=== PATIENT | female | born 1990 | race Asian ===

== ENCOUNTER 2022-03-14 08:30 | Inpatient (IN) | payer BC, SELFPAY ==
--- NOTE | 2022-03-07 09:59 | HP.PCM.OB_ITS ---
HPI - General HPI Narrative HPI: The patient is a 32 year old female presenting for pre-operative visit. She is scheduled for , for prevoius c/s, previous IUFD on 12/15/21. Procedure discussed along with risks, benefits and complications. Other alternatives discussed for management. Consent form signed? Yes. ? ? PAST MEDICAL HISTORY PAST MEDICAL HISTORY Diagnosis Date ? Disorder of thyroid ? ? Gestational hypertension ? ? History of pre-eclampsia in prior , currently ? ? IUFD at 20 weeks or more of gestation ? ? kidney stone 2020 ? Nabothian cyst ? ? depression ? ? ? PAST SURGICAL HISTORY PAST SURGICAL HISTORY Procedure Laterality Date ? SECTION MULTI>2 ? ? ? L'SCOPE DX W/WO BRUSHINGS/WASHINGS ? CURRENT MEDICATIONS Current Outpatient Medications Medication Sig Dispense Refill ? ECOTRIN LOW STRENGTH 81 mg EC tablet TAKE 2 TABLETS ONCE DAILY 360 tablet 3 ? levothyroxine (LEVOXYL) 75 mcg tablet Take 1 tablet by mouth once daily. 90 tablet 1 ? [id number] ( FORMULA-DHA) 28 mg-800 mcg- 200 mg cap Take 1 capsule by mouth once daily. ? ? ? No current facility-administered medications for this visit. ? ? ALLERGIES: Patient has no known allergies. ? PERSONAL HISTORY: SOCIAL HISTORY Social History ? Tobacco Use ? Smoking status: Never Smoker ? Smokeless tobacco: Never Used Vaping Use ? Vaping Use: Never used Substance Use Topics ? Alcohol use: Never ? Drug use: Never ? FAMILY HISTORY: FAMILY HISTORY FAMILY HISTORY Problem Relation Age of Onset ? Thyroid Mother ? ? Hypertension Mother ? ? No Known Problems Father ? ? No Known Problems Sister ? ? No Known Problems Brother ? ? No Known Problems Maternal Grandmother ? ? No Known Problems Maternal Grandfather ? ? other (bone cancer) Paternal Grandmother ? ? No Known Problems Paternal Grandfather ? ? No Known Problems Son ? ? ? REVIEW OF SYMPTOMS: GENERAL: denies fevers or chills ENDOCRINOLOGY: has not been on steroids Cardiology : denies palpitations or chest pain Respiratory: denies SOB or cough Hematology: denies history of prolonged bleeding or easy bruising or VTE Allergy: Denies history of personal or family history of allergy to anesthesia ? PHYSICAL EXAMINATION: ? VITALS: Last menstrual period 06/08/2021. ? GENERAL: The patient is well nourished, well hydrated in no acute distress. , The patient is oriented to time, place, and person. NECK: Supple. No lynphadenopathy, normal thyroid, no thyromegaly. LUNGS: Clear to auscultation bilaterally. no wheezes, rhonchi or rales HEART: Regular rate and rhythm, Normal heart sounds and No murmurs or gallops abd- soft, nontender, gravid ext - trace edmea ? IMPRESSION: Estimated Date of Delivery: 03/20/22 for repeat c/s ? PLAN: The risks/benefits/alternatives and personal involved for the planned c- section were reviewed with the patient. Her questions were answered to her satisfaction and she desires to proceed. Consent was signed. I reviewed with her postop instructions and expectations. ? ? I have reviewed and updated past medical and surgical history, medications and allergies Maternal Data Information Final DERRICK: 03/20/22 [facility] Medical History Back problem GERD (gastroesophageal reflux disease) Single delivery by Thyroid activity decreased Home Medications aspirin 81 mg chewable tablet 81 mg PO DAILY 12/26/21 [History Last Taken Unknown] levothyroxine 75 mcg tablet 75 mcg PO DAILY 12/26/21 [History Last Taken Un known] prenat.vits,trinity,pge-eesw-rhkpq 1 tab PO DAILY 12/26/21 [History Last Taken Unknown] Allergy/AdvReac Type Severity Reaction Status Date / Time No Known Allergies Allergy Unverified 03/03/22 16:43 Family History Mother Thyroid disorder Surgical History History of Social History Smoking Status: Never smoker alcohol intake: never substance use type: does not use Labs Labs Labs: No Data to Display Assessment & Plan (1) 39 weeks gestation of : (2) Supervision of other high risk pregnancies, third trimester: (3) Previous delivery, antepartum condition or complication: (4) History of IUFD:
[2022-03-14] VITALS (19 sets, daily range): BP systolic 89–118; BP diastolic 45–75; PULSE 61–97; RESP 14–18; TEMP 35.8–37.1; O2SAT 95–100; BMI 29.8
[2022-03-14] MEDS: Lactated Ringers 1,000 ML 999 ML IV (09:40)
[2022-03-14] MEDS: Sodium Citrate/Citric Acid 30 ML UDC PO (09:50)
[2022-03-14] MEDS: Acetaminophen 500 MG Tablet 1000 MG PO ×3 (09:50→21:06)
[2022-03-14 09:55] LABS: Absolute Lymphocyte Count 1.45 X10^3/uL (0.83-4.51); Basophil# 0.01 X10^3/uL; Basophil% 0.1 % (0-1); Eosinophil# 0.04 X10^3/uL; Eosinophils% 0.6 % (0-5); Hematocrit 35.7 % (37-47); Hemoglobin 11.9 g/dL (12.0-15.0); Lymphocyte # 1.45 X10^3/ul (0.83-4.51); Lymphocyte % 20.9 % (19-41); Mean Corp Hgb Conc 33.3 g/dL (32-36); Mean Corpuscular Hgb 33.5 pg (27.0-32.0); Mean Corpuscular Volume 100.6 fL (81-99); Mean Platelet Vol. 10.7 fl (6.2-12.0); Monocyte# 0.38 X10^3/uL; Monocyte% 5.5 % (0-10); NRBC Flagged by Analyzer 0 % (0-5); Neutrophil # 5.02 X10^3/uL (2.7-7.7); Neutrophil % 72.5 % (47-70); Platelet Count 188 K/mm3 (150-450); RBC Distribution Width SD 47.1 fl (35.1-43.9); Red Blood Count 3.55 M/mm3 (4.2-5.4); White Blood Count 6.9 K/mm3 (4.4-11.0)
[2022-03-14] MEDS: Lactated Ringers 1,000 ML 150 ML IV (10:37)
[2022-03-14] MEDS: Cefazolin 2 GM in 0.9% Normal Saline 100 ML IV (11:09)
--- NOTE | 2022-03-14 11:30 | FALS_PTH ---
PATIENT: COOPER BAILEY LOC: [facility] U#:[id number] AGE/SX: 32/F ROOM: WP007 RE03/14/[address]: Dr. Sharmila Winters DO : 1990 BED: 1 DIS: 03/17/2022 SPEC #: [id number] RECD: 03/14/22 14:40 STATUS: PAVITHRA GRICELDA #: [id number] DERRICK: 03/14/22 11:[address]: Sharmila Winters DEPT: SURGICAL PATHOLOGY RECD BY: Jimenez Marques Tissues: Fallopian tube Procedures: Surgery Specimen Level II HEADER OPERATION: Tubal ligation PRE-OP DIAGNOSIS: Sterilization TISSUE SUBMITTED: Fallopian tubes, suture in left tube MICROSCOPIC DIAGNOSIS Bilateral fallopian tubes, salpingectomy: Bilateral fallopian tubes, no pathologic diagnosis. SRINIVASAN:renee 03/18/2022 MICROSCOPIC DESCRIPTION Slides are reviewed. GROSS DESCRIPTION Received in fixative is one container labeled with the patient's name and designated bilateral fallopian tubes, suture in left tube. The specimen consists of bilateral fallopian tubes including fimbrial ends. The right fallopian tube measures 5 cm in length and 0.6 cm in diameter and the left fallopian tube measures 4 cm in length and 0.6 cm in diameter. The left fallopian tube is identified by a suture. Sections reveal unremarkable cut surfaces. Electro Mechanical Designer sections are submitted in two cassettes as follows: 1??right fallopian tube, 2 - left fallopian tube. / SRINIVASAN:renee 03/17/2022 TC:5 CPT: 17655 x2
--- NOTE | 2022-03-14 12:16 | HP.PCM.OB_ITS ---
HPI - General General Date of Admission: 03/14/22 HPI Narrative COOPER BAILEY, is a 32 F who presents [facility] Medical History (Updated 03/14/22 @ 10:11 by Ophelia Aquino) Back problem GERD (gastroesophageal reflux disease) depression Single delivery by Stillborn, normal Thyroid activity decreased Home Medications aspirin 81 mg chewable tablet 81 mg PO DAILY 12/26/21 [History Last Taken 03/13/22 22:00] levothyroxine 75 mcg tablet 75 mcg PO DAILY 12/26/21 [History Last Taken 03/14/22 05:30] prenat.vits,trinity,qft-iadq-avtsv 1 tab PO DAILY 12/26/21 [History Last Taken 03/13/22 22:00] Allergy/AdvReac Type Severity Reaction Status Date / Time No Known Allergies Allergy Unverified 03/03/22 16:43 Family History Mother Thyroid disorder Surgical History (Updated 03/07/22 @ 10:[address] Katey Stein MD) History of Social History Smoking Status: Never smoker alcohol intake: never substance use type: does not use History Elective abortions Hx Para 1 Spontaneous abortions Hx # Term Pregnancies Ectopic pregnancies Hx # Pregnancies Multiple births # of living children Vital Signs Vital Signs Vital Signs: 03/14/22 10:01 Temperature 97.1 F L Temperature Source Temporal Pulse Rate 87 Respiratory Rate 16 Blood Pressure 118/75 Blood Pressure Mean 89 Blood Pressure Source Monitor Blood Pressure Position Semi-Fowlers Blood Pressure Location Right Arm Pulse Ox 95 Oxygen Delivery Method Room Air Weight Weight: 168 lb 8 oz Body Mass Index (BMI) 29.8 Labs Labs Labs: Blood Type Pending Antibody Screen Pending Hct 35.7 % (37-47) L Hgb 11.9 g/dL (12.0-15.0) L
--- NOTE | 2022-03-14 12:48 | HP.PCM.OB_ITS ---
History and Physical Date of Admission: 03/14/22 HPI - General HPI Narrative HPI: The patient is a 32 year old female presenting for pre-operative visit. She is scheduled for , for prevoius c/s, previous IUFD on 12/15/21. Procedure discussed along with risks, benefits and complications. Other alternatives discussed for management. Consent form signed? Yes. PAST MEDICAL HISTORY PAST MEDICAL HISTORY Diagnosis Date ? Disorder of thyroid ? Gestational hypertension ? History of pre-eclampsia in prior , currently ? IUFD at 20 weeks or more of gestation ? kidney stone 2020 ? Nabothian cyst ? depression PAST SURGICAL HISTORY PAST SURGICAL HISTORY Procedure Laterality Date ? SECTION MULTI>2 ? L'SCOPE DX W/WO BRUSHINGS/WASHINGS CURRENT MEDICATIONS Current Outpatient Medications Medication Sig Dispense Refill ? ECOTRIN LOW STRENGTH 81 mg EC tablet TAKE 2 TABLETS ONCE DAILY 360 tablet 3 ? levothyroxine (LEVOXYL) 75 mcg tablet Take 1 tablet by mouth once daily. 90 tablet 1 ? [id number]-dvqc-ijein-olq ( FORMULA-DHA) 28 mg-800 mcg- 200 mg cap Take 1 capsule by mouth once daily. No current facility-administered medications for this visit. ALLERGIES: Patient has no known allergies. PERSONAL HISTORY: SOCIAL HISTORY Social History Tobacco Use ? Smoking status: Never Smoker ? Smokeless tobacco: Never Used Vaping Use ? Vaping Use: Never used Substance Use Topics ? Alcohol use: Never ? Drug use: Never FAMILY HISTORY: FAMILY HISTORY FAMILY HISTORY Problem Relation Age of Onset ? Thyroid Mother ? Hypertension Mother ? No Known Problems Father ? No Known Problems Sister ? No Known Problems Brother ? No Known Problems Maternal Grandmother ? No Known Problems Maternal Grandfather ? other (bone cancer) Paternal Grandmother ? No Known Problems Paternal Grandfather ? No Known Problems Son REVIEW OF SYMPTOMS: GENERAL: denies fevers or chills ENDOCRINOLOGY: has not been on steroids Cardiology : denies palpitations or chest pain Respiratory: denies SOB or cough Hematology: denies history of prolonged bleeding or easy bruising or VTE Allergy: Denies history of personal or family history of allergy to anesthesia PHYSICAL EXAMINATION: VITALS: Last menstrual period 06/08/2021. GENERAL: The patient is well nourished, well hydrated in no acute distress. , The patient is oriented to time, place, and person. NECK: Supple. No lynphadenopathy, normal thyroid, no thyromegaly. LUNGS: Clear to auscultation bilaterally. no wheezes, rhonchi or rales HEART: Regular rate and rhythm, Normal heart sounds and No murmurs or gallops abd- soft, nontender, gravid ext - trace edmea IMPRESSION: Estimated Date of Delivery: 03/20/22 for repeat c/s PLAN: The risks/benefits/alternatives and personal involved for the planned c- section were reviewed with the patient. Her questions were answered to her satisfaction and she desires to proceed. Consent was signed. I reviewed with her postop instructions and expectations. I have reviewed and updated past medical and surgical history, medications and allergies Maternal Data Information Final DERRICK: 03/20/22 [facility] Medical History Back problem GERD (gastroesophageal reflux disease) Single delivery by Thyroid activity decreased Home Medications aspirin 81 mg chewable tablet 81 mg PO DAILY 12/26/21 [History Last Taken Unknown] levothyroxine 75 mcg tablet 75 mcg PO DAILY 12/26/21 [History Last Taken Unknown] prenat.vits,rtinity,jjw-dnom-nwpxl 1 tab PO DAILY 12/26/21 [History Last Taken Unknown] Allergy/AdvReac Type Severity Reaction Status Date / Time No Known Allergies Allergy Unverified 03/03/22 16:43 Family History Mother Thyroid disorder Surgical History History of Social History Smoking Status: Never smoker alcohol intake: never substance use type: does not use Labs Labs Labs: No Data to Display Assessment & Plan (1) 39 weeks gestation of : (2) Supervision of other high risk pregnancies, third trimester: (3) Previous delivery, antepartum condition or complication: (4) History of IUFD: Assessment & Plan Assessment/Plan (1) 39 weeks gestation of : (2) History of IUFD: (3) Previous delivery, antepartum condition or complication: (4) Supervision of other high risk pregnancies, third trimester:
--- NOTE | 2022-03-14 12:49 | OP.PCM_ITS ---
Problems Associated Problem List Diagnoses (1) History of IUFD: (2) Previous delivery, antepartum condition or complication: (3) Supervision of other high risk pregnancies, third trimester: (4) 39 weeks gestation of : Report of Operation Date of Procedure: 03/14/22 Pre-Operative Diagnosis: 39 week gestation, single IUP, history of IUFD at term, history of 2 prior section, desires permanent sterilization Post-Operative Diagnosis: As above Surgery/Procedure Performed:: Repeat low transverse section Via Pfannenstiel incision with bilateral salpingectomy Description of Surgical Findings:: Moderate amount of scar tissue present. Fascia was dense and adhered to the rectus muscles. The rectus muscles were adhered in the midline. The bladder was moderately adhered to the anterior surface of the uterus. The uterus and bilateral adnexa were normal. Clear fluid. Intact and normal-appearing placenta with a three-vessel cord. Viable female infant. Apgars 9, 9. Surgeon: Sharmila Winters adjunct faculty instructor: Amrita Type of Anesthesia: Spinal Special Medications: None Specimen's removed: Placenta and bilateral fallopian tubes Drains: Draper Estimated Blood Loss (mL): 600 Fluids Replaced: 1200 Description of Procedure: Discussed risk, benefits, alternatives to a section and bilateral salpingectomy. Discussed that a bilateral salpingectomy is permanent and irreversible and there is a risk of regret. Patient is 100% certain that she wants her fallopian tubes removed and she desires sterili zation. Procedure: Patient was taken to the operating room where spinal anesthesia was found to be adequate. She was prepped and draped in the dorsal position with a leftward tilt. A Pfannenstiel skin incision was made with a scalpel and this was carried down to the underlying layer fascia. The fascia was incised in midline. Fascia was extended laterally using Stephen scissors. The fascia and s ubcutaneous space were dense with adhesions. The fascia was dissected off the rectus muscles with sharp dissection, and the fascia was densely adhered to the rectus muscles. Rectus muscles were adhered in the midline and using a combination of sharp and blunt dissection. The peritoneum was entered bluntly. The peritoneal incision was extended bluntly. There were moderate adhesions of the bladder to the uterus. The bladder flap was created using Metzenbaum scissors. A bladder blade was inserted. A low transverse incision was made on the uterus with a scalpel. The uterine incision was extended bluntly. Membranes were ruptured for clear fluid. The 's head was flexed and brought to the hysterotomy. A viable female was delivered easily through the hysterotomy without any force or delay. The was vigorous on delivery. The cord was clamped and cut after a slight delay. The infant was handed off to the waiting nursery staff. The placenta was removed with manual extraction. Uterus was cleared of all clot and debris. The uterus was exteriorized. The hysterotomy was closed with 1-0 Vicryl in a running locked fashion. A second imbricating layer was performed. Hemostasis was noted. Again confirmed that the patient desired sterilization. Using [place] clamps the left fallopian tube was followed out to the fimbriated end. Using the LigaSure device the mesosalpinx was serially cauterized, clamped, transected until reaching the level of the cornua. Once at the level of the cornua the left fallopian tube was clamped, cauterized and transected. The fallopian tube was sent to pathology. The same was performed on the right side to remove the right fallopian tube. Uterus was placed back into the abdomen. Again hemostasis was noted. Prophylactic Prosper was placed over the hysterotomy and bladder flap. The peritoneum was closed with 3-0 Vicryl in a running fashion. Several areas of the rectus muscle were made hemostatic with the Bovie cautery. The fascia was closed with strata fix in a running fashion. Subcutaneouss space was irrigated and made hemostatic with the Bovie cautery. The subcutaneous space was reapproximated 3-0 Vicryl. The skin was closed with 4-0 Monocryl in a subcuticular fashion. A dressing was placed. Instrument, sponge, sharps counts were correct and the patient was taken to the recovery room in stable condition. INSPECTOR WATCH [employer]S assisted with the entire procedure: draping the patient, delivery of , closure. Grafts/Implants Used: None Procedure Start Time: 11:13 Procedure Stop Time: 12:22 Complications None Admit VTE Documentation VTE Present on Admission: No VTE Mechan Device Prophylaxis: SCD's
[2022-03-14] MEDS: Oxytocin 30 units/NS 500 ml 30 UNITS/500 ML IV.SOLN 167 UNITS IV (13:14)
[2022-03-14] MEDS: Ketorolac 30 MG/ML Syringe IV ×2 (13:14→19:00)
[2022-03-14 14:39] LABS: Pathology Specimen OB SEE PATHOLOGY REPORT
[2022-03-14] MEDS: Lactated Ringers 500 ML IV.SOLN. IV (15:58)
[2022-03-14] MEDS: Lactated Ringers 1,000 ML 100 ML IV (16:54)
--- NOTE | 2022-03-14 21:39 | NURSING ---
pt sitting up at bedside, reporting intermittently feeling dizzy while sitting. this RN states she will come back in room with next duramorph assessment to attempt to get pt out of bed. pt understands and willing to attempt again.
[2022-03-15] MEDS: 0.9% Saline Lock 10 ML Syringe IV ×2 (00:38→06:13)
[2022-03-15] MEDS: Ketorolac 30 MG/ML Syringe IV ×2 (00:39→06:13)
[2022-03-15] MEDS: Acetaminophen 500 MG Tablet 1000 MG PO ×4 (04:34→22:29)
[2022-03-15 04:38] VITALS: BP 96/57; PULSE 71; RESP 18; TEMP 36.2; O2SAT 99
[2022-03-15 05:19] LABS: Hematocrit 31.8 % (37-47); Hemoglobin 10.5 g/dL (12.0-15.0); Mean Corpuscular Hgb 33.1 pg (27.0-32.0); Mean Corpuscular Volume 100.3 fL (81-99); Mean Platelet Vol. 10.1 fl (6.2-12.0); Platelet Count 169 K/mm3 (150-450); RBC Distribution Width CV 13.2 % (11.6-14.6); RBC Distribution Width SD 47.2 fl (35.1-43.9); Red Blood Count 3.17 M/mm3 (4.2-5.4); White Blood Count 8.6 K/mm3 (4.4-11.0)
[2022-03-15] MEDS: Levothyroxine 75 MCG Tablet PO (06:13)
--- NOTE | 2022-03-15 07:12 | PN.OBGYN_ITS ---
Subjective Subjective Patient is doing well this morning. Pain is well controlled. She denies lightheadedness, dizziness, chest pain, shortness of breath, leg pain. She is ambulating voiding without difficulty. Tolerating a diet without nausea or vomiting. Breast-feeding. Lochia is normal. Objective Data Objective Data Vital Signs: Vital Signs Temp Pulse Resp BP Pulse Ox 97.2 F L 71 18 96/57 L 99 03/15/22 04:38 03/15/22 04:38 03/15/22 04:38 03/15/22 04:38 03/15/22 04:38 Oxygen Delivery Method Room Air Weight: 168 lb 8 oz Body Mass Index (BMI) 29.8 Intake & Output: Intake and Output for Last 24 Hours 03/13/22 03/14/22 03/15/22 23:59 23:59 23:59 Intake Total 3011.47 / 3011.47 1625 / 1625 Output Total 1325 / 1325 900 / 900 Balance 1686.47 / 1686.47 725 / 725 Lab / Micro Data Result Diagrams: 03/15/22 05:15 Labs: Laboratory Results - last 24 hr 03/14/22 09:40: WBC 6.9, RBC 3.55 L, Hgb 11.9 L, Hct 35.7 L, MCV 100.6 H, MCH 33.5 H, MCHC 33.3, RDW Std Deviation 47.1 H, RDW Coeff of Gurvinder 13.0, Plt Count 188, MPV 10.7, Immature Gran % (Auto) 0.400, Neut % (Auto) 72.5 H, Lymph % (Auto) 20.9, Sampson % (Auto) 5.5, Eos % (Auto) 0.6, Baso % (Auto) 0.1, Absolute Neuts (auto) 5.0, Absolute Lymphs (auto) 1.45, Nucleated RBC % 0 03/14/22 09:40: Blood Type AB POSITIVE, Antibody Screen NEGATIVE 03/15/22 05:15: WBC 8.6, RBC 3.17 L, Hgb 10.5 L, Hct 31.8 L, MCV 100.3 H, MCH 33.1 H, MCHC 33.0, RDW Std Deviation 47.2 H, RDW Coeff of Gurvinder 13.2, Plt Count 169, MPV 10.1 Micro: Microbiology 05/20/22 10:19 Nasal Secretion SARS-CoV-2 Antigen (Rapid) - Final Physical Exam Const alert and no apparent distress Constitutional Narrative: currently with nurse at bedside. General Appearance: comfortable Assessment & Plan (1) Delivery by section: PLAN: Patient is postoperative day 1 from a repeat section. She is doing well. Vitals are stable. CBC reviewed. Routine postop care and anticipate discharge tomorrow.
[2022-03-15 07:53] VITALS: BP 123/68; PULSE 77; RESP 18; TEMP 36.4; O2SAT 99
[2022-03-15] MEDS: Senna/Docusate Sodium 1 Tablet PO (11:09)
--- NOTE | 2022-03-15 12:13 | CASEMGMT ---
Social Work Assessment Labor and Delivery Unit Date/Time of Referral: 03/15/22, 11:01 Referred by: Sharmila Winters Date/Time of Intervention: 03/15/22, 11:45am Reason for referral: Mental health, loss in prior at 36 weeks History obtained from: MOB and FOB Household composition: [place], 4.5 year old son and now baby girl Saqib. MOB and FOB have been together for 7 years Medical History: MOB: PPD, hypothyroid, gestational hypertension, high risk . Baby: Born 03/14/22, 11:21am, 3220 grams. Apgars 9 and 9 at 1 and 5 minutes. Financial Status: No concerns, MOB stays home w/children, FOB works Infant supplies: They have all needed supplies including clothing, car seat, diapers, wipes. They have a mattress with sides that sits on their mattress for the baby. Childcare/Caregivers: MOB and FOB, they have no family here, everyone is in [place] still Transportation: They have one car Programs/agencies involved: None Legal Issues/children's services: None Behavioral Health History: Substance Abuse: None for FOB or MOB. Mental Health: MOB, history of PPD. We spoke about the loss of their last . BAYLEE able to say it was difficult, and she had ups and downs during this . She was very worried coming into the hospital this time and having a , as it all was very similar to when the last baby was stillborn. She states she is very happy and relieved now that she had the baby and the baby is okay. We talked about this being difficult and the last few days in particular being tough for both MOB and FOB. Support given. BAYLEE did not seek counseling, but did take some sleeping pills that were prescribed, as she states she did not sleep for 4-5 days. She states this helped. She did not go on any kind of mood stabilizer however. Support Systems: All of their family but one cousin is in [place]. The one cousin is in [place]. They do have some friends in the area that are supportive however. Depression and Anxiety/Shaken baby/Safe sleeping/Help Me Grow/[facility] Resources/Mental Health Resources: SW gave information and reviewed information on all of these topics. SW reviewed in particular information on and symptoms of depression, explained that she may experience this again. SW encouraged MOB if she is having a difficult time to speak w/her doctor and to also consider counseling if needed. FOB asked about insurance coverage for counseling. SW explained that most insurances do cover but to call the number on his card to make sure, states understanding. Assessment: FOB and MOB both forthcoming in talking about what they have been through. Both express being happy and relieved now that baby Saqib is here. Both appropriate and open in speaking w/SW. Plan: Baby to go home w/MOB and FOB at discharge. DIANDRA White
[2022-03-15] MEDS: Ibuprofen 600 MG Tablet PO (15:01)
[2022-03-15 15:13] VITALS: BP 106/66; PULSE 75; RESP 16; TEMP 36.6
[2022-03-15] MEDS: oxyCODONE 5 MG Tablet PO (15:31)
[2022-03-15 20:00] VITALS: BP 101/72; PULSE 84; RESP 16; TEMP 36.2; O2SAT 98
[2022-03-16] MEDS: Ibuprofen 600 MG Tablet PO ×5 (00:47→23:58)
[2022-03-16 02:10] VITALS: BP 110/70; PULSE 80; RESP 18; TEMP 36.1; O2SAT 98
[2022-03-16] MEDS: Acetaminophen 500 MG Tablet 1000 MG PO ×4 (05:00→22:39)
[2022-03-16] MEDS: Levothyroxine 75 MCG Tablet PO (06:34)
--- NOTE | 2022-03-16 09:05 | PCM.PN.OB ---
Subjective Subjective She is doing well. Having some cramping and back pain. She requests a muscle relaxer today. She denies lightheadedness or dizziness when up ambulating. She is voiding without difficulty. Tolerating regular diet without nausea or vomiting. Lochia is normal. She is breast-feeding without complaints. She desires to stay another night and go home tomorrow. Objective Data Objective Data Vital Signs: Vital Signs Temp Pulse Resp BP Pulse Ox 96.9 F L 80 18 110/70 98 03/16/22 02:10 03/16/22 02:10 03/16/22 02:10 03/16/22 02:10 03/16/22 02:10 Oxygen Delivery Method Room Air Weight: 168 lb 8 oz Body Mass Index (BMI) 29.8 Intake & Output: Intake and Output for Last 24 Hours 03/14/22 03/15/22 03/16/22 23:59 23:59 23:59 Intake Total 3011.47 / 3011.47 1625 / 1625 Output Total 1325 / 1325 900 / 900 Balance 1686.47 / 1686.47 725 / 725 Lab / Micro Data Result Diagrams: 03/15/22 05:15 Micro: Microbiology 03/14/22 10:19 Nasal Secretion SARS-CoV-2 Antigen (Rapid) - Final Physical Exam Const alert and no apparent distress General Appearance: comfortable GI soft to palpation GI Narrative: ATTP, FF@U-1 Extremity no calf tenderness Assessment & Plan (1) Delivery by section: PLAN: She is postop day 2 from a scheduled repeat section. She is doing well. Discussed pain control expectations. Breast-feeding without complaints. She desires discharge tomorrow. Routine postoperative care.
[2022-03-16 09:10] VITALS: BP 101/71; PULSE 89; RESP 18; TEMP 36.2; O2SAT 99
[2022-03-16] MEDS: Senna/Docusate Sodium 1 Tablet PO (12:26)
[2022-03-16 14:00] VITALS: TEMP 36.3
[2022-03-16] MEDS: cycloBENZAPRine HCl 10 MG Tablet PO (15:08)
[2022-03-16 16:00] VITALS: BP 116/70; PULSE 68; RESP 18
[2022-03-16 20:00] VITALS: BP 107/79; PULSE 95; RESP 16; TEMP 36.1
[2022-03-17 02:05] VITALS: BP 112/71; PULSE 73; RESP 16; TEMP 36.1
[2022-03-17] MEDS: Acetaminophen 500 MG Tablet 1000 MG PO ×3 (04:01→18:46)
[2022-03-17] MEDS: Ibuprofen 600 MG Tablet PO ×3 (06:13→18:46)
[2022-03-17] MEDS: Levothyroxine 75 MCG Tablet PO (06:21)
[2022-03-17 07:42] VITALS: BP 103/65; PULSE 78; RESP 16; TEMP 36.4; O2SAT 100
--- NOTE | 2022-03-17 08:56 | PCM.PN.OB ---
Subjective Subjective Pain well controlled. Average lochia. Positive flatus. Positive bowel movement. Ambulating without difficulty. Tolerating regular diet. Objective Data Objective Data Vital Signs: Vital Signs Temp Pulse Resp BP Pulse Ox 97.5 F L 78 16 103/65 100 03/17/22 07:42 03/17/22 07:42 03/17/22 07:42 03/17/22 07:42 03/17/22 07:42 Oxygen Delivery Method Room Air Weight: 76.43 kg Body Mass Index (BMI) 29.8 Intake & Output: Intake and Output for Last 24 Hours 03/15/22 03/16/22 03/17/22 23:59 23:59 23:59 Intake Total 1625 / 1625 Output Total 900 / 900 Balance 725 / 725 Lab / Micro Data Result Diagrams: 03/15/22 05:15 Micro: Microbiology 03/14/22 10:19 Nasal Secretion SARS-CoV-2 Antigen (Rapid) - Final Physical Exam Const alert General Appearance: cooperative GI GI Narrative: soft, moderate distention, fundus firm, appropriately tender. Abdominal bandage clean dry and intact Assessment & Plan (1) Delivery by section: PLAN: Postoperative day #3 status post repeat section. Patient and are doing well. has lost a significant portion of body weight. Working with and pediatricians. Patient is supplementing. Patient will be discharged home today. If is not discharged, patient will stay at hotel. Follow-up in the office in 3 to 5 days or as needed.
--- NOTE | 2022-03-17 08:57 | DS.PCM_ITS ---
Providers Date of Admission: 03/14/22 Reason For Visit: REPEAT C SECTION Diagnosis Discharge Diagnosis (1) Delivery by section: Status: Acute Medications at Discharge Home Medications levothyroxine 75 mcg tablet 75 mcg PO DAILY 12/26/21 prenat.vits,trinity,[id number] 1 tab PO DAILY 12/26/21 acetaminophen [Tylenol Extra Strength] 1,000 mg PO Q6H PRN PRN 14 Days #60 tab MDD 4000 mg 03/17/22 ibuprofen 600 mg PO Q6H PRN 20 Days #60 tablet 03/17/22 oxycodone 5 mg PO Q6H PRN PRN 75 Days #10 tablet 03/17/22 Hospital Course Operations - (Repeat low transverse section performed on 03/14/2022) Procedures None Summary of Care Provided Hospital Course: Patient is a 32-year-old female admitted for repeat section. This was performed without difficulty on 03/14/2022. By postoperative day #3 patient was urinating, ambulating tolerating regular diet without difficulty. They were working with because the baby had lost 12% body weight. Patient was discharged home with routine instructions and prescriptions and follow-up in the office in 3 to 5 days or as needed. Weight / BMI Weight Weight: 76.43 kg Body Mass Index (BMI) 29.8 ABG / Lab / Microbiology Data Result Diagrams: 03/15/22 05:15 Microbiology: Microbiology 03/14/22 10:19 Nasal Secretion SARS-CoV-2 Antigen (Rapid) - Final D/C Instructions Discharge Diet: No restrictions May resume sexual activity in: 4-6 weeks Lifting Restrictions: 20 pounds Additional Activity Instructions: Nothing in the vagina for 4-6 weeks. You may return to work/school in 6 weeks. Call your doctor if your incision/area has: Continuous Slow Oozing, Sudden I ncreased Bleeding, Increased Pain/ Swelling, Increased Redness and Foul Smelling Discharge Call your doctor if you observe: Fever of 101 or Higher and Using more than 1 pad per hour (for 2 hours) Suture Line Care: Avoid Pulling/Pushing and Avoid Pinching/Bending Cleanse incision/area with: Keep Dressing Clean & Dry Please Follow Up With: Katey Stein MD When: Call to make an appointment for an incision check in 1-2 [phone]. You will need a post check in 6 weeks. Meaningful Use Info Meaningful Use Diagnoses (Choose all that apply): None applicable Discharge Plan Admission Admit Date/Time: 03/14/22 08:30 Primary Reason for Your Visit: Attending Provider: Sharmila Winters Discharge Orders/Prescriptions Prescriptions: New ibuprofen [ibuprofen] 600 MG tablet 600 mg PO Q6H PRN (Reason: Pain) 20 Days Qty: 60 RF: 1 acetaminophen [Tylenol Extra Strength] 500 mg tablet 1,000 mg PO Q6H PRN MDD 4000 mg PRN (Reason: pain) 14 Days Qty: 60 RF: 0 oxycodone 5 MG tablet 5 mg PO Q6H PRN PRN (Reason: severe pain) 75 Days Qty: 10 RF: 0 Continued levothyroxine 75 mcg tablet 75 mcg PO DAILY RF: 0 prenat.vits,trinity,[id number] Tablet 1 tab PO DAILY RF: 0 Discontinued aspirin 81 mg tablet,chewable 81 mg PO DAILY RF: 0 Disposition Disposition (needs filled in before D/C Order can be placed): Home, Self Care
[2022-03-17 14:00] VITALS: BP 119/81; PULSE 98; RESP 15; TEMP 36.7
== END 2022-03-17 19:10 | disposition home or self-care (01) | DRG 785 ==
PROVIDERS: Obstetrics & Gynecology; Admitting Provider Obstetrics & Gynecology; Visit Provider Obstetrics & Gynecology
PROC: (CPT 59514; principal; 2022-03-14 10:45)
DX: O34.219 Maternal care for unspecified type scar from previous cesarean delivery (principal); E03.9 Hypothyroidism, unspecified; O99.284 Endocrine, nutritional and metabolic diseases complicating childbirth; Z79.899 Other long term (current) drug therapy; Z3A.39 39 weeks gestation of pregnancy; Z37.0 Single live birth; Z87.59 Personal history of other complications of pregnancy, childbirth and the puerperium; Z30.2 Encounter for sterilization; O13.4 Gestational [pregnancy-induced] hypertension without significant proteinuria, complicating childbirth
CPT/HCPCS: 59050; 85025; 85027; 86850; 86900; 86901; 87426; 88302; 99218; 99251; J7120; A4216; G0378; G0463; J2405

== ENCOUNTER → 2022-04-08 | Outpatient (CLI) | payer BC, SELFPAY | END | disposition home or self-care (01) | LOC: MTRAD 16:24 | PROVIDERS: Referring Provider Chiropractor; Visit Provider Chiropractor | DX: M54.50 Low back pain, unspecified (principal); M99.04 Segmental and somatic dysfunction of sacral region; M99.03 Segmental and somatic dysfunction of lumbar region | CPT/HCPCS: 72070; 72110 ==

== ENCOUNTER 2022-05-09 15:00 | Outpatient (RCR) | payer BC, SELFPAY ==
--- NOTE | 2022-05-02 16:05 | HP.PTEVAL_ITS ---
Patient's Visit Information COOPER BAILEY is a 32 year old F referred to Physical Therapy by Dr. Doreen Sinha DC with a diagnosis of SCIATICA. Date of Evaluation: 05/02/22 Physical Therapist: Kristy Valerio PT, Cert MDT - Visit Plan Frequency: 2-3x /Week Duration: 4-6 Weeks Plan: AQUATIC THERAPY (IF PATIENT CAN WORK IT OUT WITH HER FAMILY SCHEDULE) FOR PAIN RELIEF, POSTURE CORRECTION/STRENGTHENING, INSTRUCTION IN APPROPRIATE BODY MECHANICS AND ACTIVITY MODIFICATIONS. DLS STARTING WITH A NEUTRAL SPINE PROGRESSING ROM TOLERATED. MCKAY LE ROM, STRETCHING AND STRENGTHENING. HEP INSTRUCTION. - Subjective Work/Leisure: UNEMPLOYED. STAY AT HOME MOM. CHILDREN AGES 4 YEAR OLD AND ONE MONTH OLD. Disability: NO. Present symptoms: LOW BACK PAIN. MCKAY LE PAIN L > RIGHT TO FEET. INTERMITTENT MCKAY FOOT TINGLING. Present since: ABOUT 4 YEARS AGO. Pain Scale: WORST 8/10, LEAST 2/10. Currently: 7/10. Commenced as a result of: FALL DOWN STEPS OUTSIDE AT WORK IN [place]. Symptoms at onset: LOW BACK PAIN. Worse: THE DAY PROGRESSES, STANDING IS THE BIG ISSUE, SWEEPING, BENDING, AND DELIVERY. Better: MASSAGE, HEATING PAD, MEDICATION. Disturbed sleep: SOMETIMES. HAVE TO SLEEP ON BACK. CAN'T SLEEP ON SIDES DUE TO THE PAIN IN LOW BACK. Previous history/Previous treatment: MASSAGE. PHYSIOTHERAPY IN [place] ABOUT 5 TIMES ABOUT 3 YEARS AGO AND IT HELPED BUT NO LONGER DOING THE EX'S THAT SHE WAS GIVEN,. Treatment this episode: APPROX 12 CHIROPRACTIC VISITS - HELPING. ONGOING. Coughing/sneezing/straining: NEGATIVE. Gait: LOW BACK PAIN WITH PROLONGED WALKING MORE THAN A MILE. BOWEL OR BLADDER DYSFUNCTION: NO. Accidents: 2 FALLS. HURT TAILBONE FIRST TIME. HURT PELVIS SECOND TIME BUT NO FX'S. Imaging: SEE [facility] EMR. PMH/Recent major surgery: HYPOTHYROIDISM - Objective Sitting/Standing Posture: POOR. Lordosis: NORMAL. Lateral shift: NO. Relevant shift: N/A. Active Correction of posture: BETTER. Other Observations: INDEP GAIT INTO PT WITHOUT ANY AD'S OR GROSS DEVIATIONS NOTED. INDEP TRANSFER SIT TO STAND WITHOUT UE ASSIST. Sensory deficit: MCKAY LE LIGHT TOUCH SENSATION GROSSLY INTACT AND SYMMETRICAL. ROM deficit: MILD MCKAY LE HS TIGHTNESS. Motor deficit: MCKAY LE'S 5/5 WITH MMT'ING EXCEPT HIPS 4/5 AND PATIENT DENIES INCREASED LBP WITH LE MMT'ING. Dural Signs: NEGATIVE MCKAY LE'S. Lumbar mvmt loss: flex - NIL. ext - MOD. R SG - NIL. L SG - NIL. PATIENT C/O INCREASED LOW BACK PAIN WITH LUMBAR ROM TESTING ALL PLANES. PATEINT DENIED LE SX'S WITH TESTING. Core strength: POOR. Palpation: TENDERNESS WITH LIGHT PALPATION OF LOWER THORACIC AND LUMBAR SPINE AND SACRUM. ALSO TENDER MCKAY SI JOINT REGIONS. OTHER: BEFORE WAS DOING YOGA ONCE A WEEK. - Balance/Special Test Scores Oswestry Low Back Score: 15 - Goals Goal 1:: DECREASE C/O LOW BACK AND MCKAY LE SX'S. Goal Time Frame: 4-6 Weeks Goal 2:: IMPROVE PERSONAL CARE, LIFTING, WALKING, SITTING, STANDING, AND HOMEMAKING FUNCTION. Goal Time Frame: 4-6 Weeks Goal 3:: INSTRUCT IN PROPHYLAXIS Goal Time Frame: 4-6 Weeks - Anticipated Interventions Patient/Client Instruction: Educate patient on: Condition, Plan of Care, Risk Factors For the Purpose of:: To improve self management Therapeutic Exercise to Include: Strength training, Body mechanics, Postural training, Flexibilty training, Neuromotor development, In an aquatic setting, Dynamic Lumbar Stabilization For the Purpose of:: To decrease pain, To improve muscle performance and motor function, To increase tolerance to activity/condition/position, To improve ability of physical actions for home/community/work/leisure Cryotherapy (ice pack, ice massage): Yes Thermo therapy (hot pack): Yes Ultrasound (thermal/non thermal): Yes For the Purpose of:: To decrease pain, To improve nutrient delivery to tissue Thank you for the opportunity to evaluate your patient. For Medicare and Medicare HMO plans, please review the plan of care and approve it. It will need to be FAXED BACK to us at [phone] for Medicare purposes. For Medicare only, by signing this I certify the plan of care. Please let me know if there are questions or concerns regarding this plan of care. Physician Signature: Date:
--- NOTE | 2022-08-05 13:02 | HP.PT.NRP ---
COOPER BAILEY was seen in my office for initial evaluation on 05/02/22. The following Plan of Care was established for this patient: Initial Frequency: 2-3x /Week Initial Duration: 4-6 Weeks Patient/Client Instruction: Educate patient on: Condition, Plan of Care, Risk Factors For the Purpose of:: To improve self management Therapeutic Exercise to Include: Strength training, Body mechanics, Postural training, Flexibilty training, Neuromotor development, In an aquatic setting, Dynamic Lumbar Stabilization For the Purpose of:: To decrease pain, To improve muscle performance and motor function, To increase tolerance to activity/condition/position, To improve ability of physical actions for home/community/work/leisure Cryotherapy (ice pack, ice massage): Yes Thermo therapy (hot pack): Yes Ultrasound (thermal/non thermal): Yes For the Purpose of:: To decrease pain, To improve nutrient delivery to tissue This patient was last seen in our office 05/09/22. Pertinent comments regarding their Physical therapy will appear below: This patient has not returned to Physical Therapy and is appropriate to return to MD for further follow-up as needed. At this point I will be discontinuing this patient from physical therapy. I would be happy to see this patient again in the future if found appropriate by the physician. Thank you! Kristy Valerio, PT, Cert MDT Balance/Gait/Functional tests - Balance/Special Test Scores Oswestry Low Back Score: 15
== END 2022-05-09 19:00 | disposition home or self-care (01) ==
LOC: PT 15:00
PROVIDERS: Referring Provider Chiropractor; Visit Provider Chiropractor
DX: M54.30 Sciatica, unspecified side (principal)
CPT/HCPCS: 97113; 97162; 97530

== ENCOUNTER → 2022-10-06 | Outpatient (CLI) | payer BC, SELFPAY | END | disposition home or self-care (01) | PROVIDERS: PCP Internal Medicine; Referring Provider Chiropractor; Visit Provider Chiropractor | DX: M99.01 Segmental and somatic dysfunction of cervical region (principal) | CPT/HCPCS: 72040 ==

== ENCOUNTER → 2022-10-16 | Outpatient (CLI) | payer BC, SELFPAY ==
--- NOTE | 2022-10-16 08:27 | MRI_ITS ---
STUDY: MRI LUMBAR SPINE WITHOUT CONTRAST REASON FOR EXAM: Female, 32 years old. low back pain since patient fell x 2 years ago during , pain radiates down the left leg and to bilateral hips TECHNIQUE: Standardized fat and water weighted pulse sequences were obtained in the sagittal and axial planes. COMPARISON: X-ray the lumbar spine dated APRIL 08, 2022 FINDINGS: Normal lumbar lordosis. There is no substantial scoliosis. Normal conus medullaris that terminates at the T12 level. No marrow edema or fracture or compression deformity is seen. Spinal ligaments are intact. T12-L1: Normal endplates. Normal disc height, hydration and morphology. Normal bilateral facet joints. Normal central canal and bilateral lateral recesses. Normal bilateral intervertebral neural foramina. L1-2: Normal endplates. Normal disc height, hydration and morphology. Normal bilateral facet joints. Normal central canal and bilateral lateral recesses. Normal bilateral intervertebral neural foramina. L2-3: Normal endplates. Normal disc height, hydration and morphology. Normal bilateral facet joints. Normal central canal and bilateral lateral recesses. Normal bilateral intervertebral neural foramina. L3-4: Normal endplates. Normal disc height, hydration and morphology. Normal bilateral facet joints. Normal central canal and bilateral lateral recesses. Normal bilateral intervertebral neural foramina. L4-5: Normal endplates. Normal disc height, hydration and morphology. Mild central canal stenosis secondary to mild facet joint hypertrophy. Normal bilateral lateral recesses. Mild bilateral foraminal stenosis. L5-S1: Normal endplates. Normal disc height, hydration and morphology. Normal bilateral facet joints. Normal central canal and bilateral lateral recesses. Normal bilateral intervertebral neural foramina. Normal visualized sacral ala. Normal visualized paraspinous soft tissue structures. MRI/Spine Lumbar (Routine) IMPRESSION: 1. Mild central canal stenosis at L4-L5 secondary to facet joint hypertrophy. 2. Mild bilateral foraminal stenosis at L4-L5. Electronically Signed: Carlo Austin MD at 12:51 EST ,
== END | disposition home or self-care (01) ==
LOC: MRI 08:27
PROVIDERS: PCP Internal Medicine; Referring Provider Chiropractor; Visit Provider Chiropractor
DX: M48.061 Spinal stenosis, lumbar region without neurogenic claudication (principal); M99.03 Segmental and somatic dysfunction of lumbar region; M54.50 Low back pain, unspecified; M54.16 Radiculopathy, lumbar region
CPT/HCPCS: 72148